=== PATIENT | male | born 1950 | race Caucasian/White ===

== ENCOUNTER → 2023-01-21 | Outpatient (CLI) | payer OTHER ==
[~2023-01-21] MED LIST: MOTRIN800 MG PO
== END | disposition home or self-care (01) ==
LOC: CARD 00:50
PROVIDERS: ATTEND Internal Medicine Nephrology
DX: I08.0 Rheumatic disorders of both mitral and aortic valves (principal)

== ENCOUNTER → 2023-02-12 | Day surgery (SDC) | payer OTHER ==
[~2023-02-12] VITALS: Ht 172.7 cm; Wt 78.0 kg
[~2023-02-12] MED LIST changes: +LIPITOR10 MG PO; +METFORMIN HYDR500 MG PO
[2023-02-12 09:06] VITALS: BP 94/57
[2023-02-12 09:21] VITALS: BP 99/60
[2023-02-12 09:36] VITALS: BP 102/62
== END | disposition home or self-care (01) ==
LOC: SDC 02-09 11:00
PROVIDERS: ATTEND Surgery
DX: Z12.11 Encounter for screening for malignant neoplasm of colon (principal); K63.5 Polyp of colon; K62.1 Rectal polyp; E11.9 Type 2 diabetes mellitus without complications; K57.30 Diverticulosis of large intestine without perforation or abscess without bleeding; E78.00 Pure hypercholesterolemia, unspecified; Z79.899 Other long term (current) drug therapy